=== PATIENT | female | born 1990 | race Caucasian/White ===

== ENCOUNTER 2016-11-23 07:46 | Emergency (ER) | payer BC ==
[~2016-11-23] VITALS: Ht 152.4 cm; Wt 81.6 kg
[~2016-11-23 07:46] MED LIST: ALDOMET250 MG PO; ALDOMET500 MG PO; CALCIUM 500 MG1 EACH PO; ENDOCET 5-3251 EACH PO; HUMALOG100 UNIT/1 SC; HUMULIN N100 UNITS/ SC; HUMULIN R100 UNITS/ SC; IBUPROFEN800 MG PO; IRON325 M1 PO; LABETALOL HCL100 MG PO; LABETALOL HCL200 MG PO; LEVEMIR FL100 UNIT/1 SC; METFORMIN HCL1000 MG PO; PRENATAL TABLE1 EAC3 PO; SYNTHROID125 MCG PO; ZANTAC150 MG PO
[2016-11-23 08:24] LABS: HEMATOCRIT 40.4 % (36.0-46.0); MCH 28.8 PG (29.0-34.0); MCHC 32.7 G/DL (30.0-36.0); MEAN PLAT.VOLUME 9.9 uM^3 (9.5-12.4); PLATELET COUNT 362 K/uL (156-360); RBC DIS.WIDTH-CV 12.6 % (11.8-14.6); RBC DIS.WIDTH-SD 40.8 % (39-53); RED BLOOD COUNT 4.59 M/uL (3.80-5.20); WHITE BLOOD COUNT 8.1 K/uL (4.1-10.2)
[2016-11-23 08:36] LABS: CHLORIDE 101 mEq/L (99-109); POTASSIUM 4.6 mEq/L (3.7-5.4); SODIUM 136 mEq/L (136-147)
[2016-11-23 08:37] LABS: GLUCOSE 301 mg/dL (70-99)
[2016-11-23 08:39] LABS: ANION GAP 12 MEQ/L (2-14)
[2016-11-23 08:41] LABS: GFR ESTIMATE (CALCULATED) > 59 mL/min/
[2016-11-23 08:42] LABS: UREA NITROGEN (BUN) 9 mg/dL (9-23)
[2016-11-23 11:12] VITALS: BP 139/84
== END 2016-11-23 11:13 | disposition home or self-care (01) ==
LOC: EME 07:46
PROVIDERS: Nurse Practitioner Family
DX: N93.8 Other specified abnormal uterine and vaginal bleeding (principal); Z32.01 Encounter for pregnancy test, result positive; I10 Essential (primary) hypertension; E11.9 Type 2 diabetes mellitus without complications; E78.5 Hyperlipidemia, unspecified; E03.9 Hypothyroidism, unspecified; Z79.4 Long term (current) use of insulin
CPT/HCPCS: 76856; 80048; 84702; 85027; 86900; 86901; 99281; 99283

== ENCOUNTER 2016-12-19 11:14 | Day surgery (SDC) | payer BC ==
[~2016-12-19] VITALS: Ht 152.4 cm; Wt 81.8 kg
[~2016-12-19 11:14] MED LIST changes: +HUMALOG100 UNIT/2 SC
[2016-12-19 11:51] LABS: POINT-OF-CARE METER ID UU14174212
[2016-12-19 12:01] VITALS: BP 146/75
[2016-12-19 12:03] LABS: EOSINOPHIL (%) 0.6 % (0-5); EOSINOPHIL COUNT 0.1 K/uL (0-0.3); HEMATOCRIT 37.4 % (36.0-46.0); IMMATURE GRANULOCYTE (%) 0.3 % (0.0-0.7); LYMPHOCYTE COUNT 2.6 K/uL (1.0-2.8); MCH 28.2 PG (29.0-34.0); MCHC 32.1 G/DL (30.0-36.0); MCV 87.8 FL (83-99); MEAN PLAT.VOLUME 9.8 uM^3 (9.5-12.4); MONOCYTE (%) 6.3 % (3-12); MONOCYTE COUNT 0.6 K/uL (0-0.8); NEUTROPHIL (%) 64.2 % (45-76); PLATELET COUNT 321 K/uL (156-360); RBC DIS.WIDTH-CV 13.2 % (11.8-14.6); RBC DIS.WIDTH-SD 42.2 % (39-53); RED BLOOD COUNT 4.26 M/uL (3.80-5.20); WHITE BLOOD COUNT 9.3 K/uL (4.1-10.2)
[2016-12-19 12:45] LABS: ALKALINE PHOSPHATASE 72 IU/L (3-129); ANION GAP 12 MEQ/L (2-14); CHLORIDE 99 MEQ/L (99-109); GFR ESTIMATE (CALCULATED) > 59 mL/min/; GLUCOSE 212 mg/dL (70-99); POTASSIUM 3.9 MEQ/L (3.7-5.4); SAMPLE HEMOLYSIS CHECK 0; SAMPLE ICTERIC CHECK 0; SAMPLE LIPEMIA CHECK 0; SODIUM 132 MEQ/L (136-147); TOTAL BILIRUBIN 0.4 MG/DL (0.0-1.0); UREA NITROGEN (BUN) 9 mg/dL (9-23)
[2016-12-19] MEDS ORDERED: DOXYCYCLINE HY100 M3 PO (12:59)
[2016-12-19] MEDS ORDERED: IBUPROFEN800 MG PO (12:59)
[2016-12-19 13:20] LABS: POINT-OF-CARE METER ID UU13113675
[2016-12-19 14:28] VITALS: BP 165/82
[2016-12-19 15:31] VITALS: BP 119/64
[2016-12-19 16:27] VITALS: BP 112/60
== END 2016-12-19 16:40 | disposition home or self-care (01) ==
LOC: SDC 11:14
PROVIDERS: Obstetrics & Gynecology
PROC: 10D07Z8 Extraction of Products of Conception, Other, Via Natural or Artificial Opening (ICD-10-PCS; principal; 2016-12-19)
DX: O02.1 Missed abortion (principal); E03.9 Hypothyroidism, unspecified; E10.9 Type 1 diabetes mellitus without complications; Z83.3 Family history of diabetes mellitus; Z80.0 Family history of malignant neoplasm of digestive organs; Z82.5 Family history of asthma and other chronic lower respiratory diseases; Z82.49 Family history of ischemic heart disease and other diseases of the circulatory system
CPT/HCPCS: 80053; 82948; 85025; 87086; 88305; 93005; J0131; J1170; J1885; J2250; J2405; J2765; J3010